=== PATIENT | female | born 1975 | race Caucasian/White ===

== ENCOUNTER 2023-10-23 21:52 | Emergency (ER) | payer MEDICAID ==
[~2023-10-23] VITALS: Ht 162.6 cm; Wt 78.0 kg
[2023-10-23 21:57] VITALS: BP 121/73; PULSE 87; RESP 16; TEMP 99; O2SAT 98
[2023-10-23] MEDS ORDERED: KETOROLAC 30 MG/ML VIAL IM ONE (22:35)
[2023-10-23] MEDS ORDERED: NAPR-54 PO (23:20)
[2023-10-24 00:05] VITALS: BP 121/73; PULSE 87; RESP 16; TEMP 99; O2SAT 98
== END 2023-10-24 00:05 | disposition home or self-care (01) ==
LOC: MED 21:52
DX: S83.92XA Sprain of unspecified site of left knee, initial encounter (principal); S93.402A Sprain of unspecified ligament of left ankle, initial encounter; F17.210 Nicotine dependence, cigarettes, uncomplicated; Z98.890 Other specified postprocedural states; Z90.49 Acquired absence of other specified parts of digestive tract; Z79.1 Long term (current) use of non-steroidal anti-inflammatories (NSAID); W05.2XXA Fall from non-moving motorized mobility scooter, initial encounter; Y93.89 Activity, other specified; Y92.410 Unspecified street and highway as the place of occurrence of the external cause; Y99.8 Other external cause status
CPT/HCPCS: 29505; 73562; 73610; 96372; 99284; J1885; Q0092

== ENCOUNTER 2024-01-02 21:24 | Emergency (ER) | payer MEDICAID ==
[~2024-01-02] VITALS: Ht 165.1 cm; Wt 78.0 kg
[~2024-01-02 21:24] MED LIST: NAPR-54 PO
[2024-01-02 21:45] VITALS: BP 164/100; PULSE 85; RESP 17; TEMP 97.9; O2SAT 98
[2024-01-03] MEDS ORDERED: IBUP-2213 PO (14:21)
[2024-01-03] MEDS ORDERED: BACI-418 TP (14:21)
[2024-01-03] MEDS ORDERED: CEPH-588 PO (14:21)
== END 2024-01-03 00:10 | disposition left against medical advice (07) ==
LOC: MED 21:24
DX: S40.811A Abrasion of right upper arm, initial encounter (principal); Z53.21 Procedure and treatment not carried out due to patient leaving prior to being seen by health care provider; W05.1XXA Fall from non-moving nonmotorized scooter, initial encounter; Y93.89 Activity, other specified; Y92.89 Other specified places as the place of occurrence of the external cause; Y99.8 Other external cause status
CPT/HCPCS: 73090; 73562; 99281

== ENCOUNTER 2024-01-03 13:12 | Emergency (ER) | payer MEDICAID ==
[~2024-01-03] VITALS: Ht 165.1 cm; Wt 80.7 kg
[2024-01-03 13:25] VITALS: BP 156/97; PULSE 91; RESP 16; TEMP 98.1; O2SAT 97
[2024-01-03] MEDS: KETOROLAC 30 MG/ML VIAL IM ONE (14:20)
[2024-01-03] MEDS ORDERED: BACI-418 TP (14:21)
[2024-01-03] MEDS ORDERED: IBUP-2213 PO (14:21)
[2024-01-03] MEDS ORDERED: CEPH-588 PO (14:21)
[2024-01-03] MEDS: BACITRACIN OINT 500 UNITS/GM PKT TP ONE (14:45)
[2024-01-03 15:00] VITALS: BP 156/97; PULSE 91; RESP 16; TEMP 98.1; O2SAT 97
== END 2024-01-03 15:00 | disposition home or self-care (01) ==
LOC: MED 13:12
DX: S80.02XA Contusion of left knee, initial encounter (principal); S50.11XA Contusion of right forearm, initial encounter; V00.848A Other accident with standing micro-mobility pedestrian conveyance, initial encounter; Y93.89 Activity, other specified; Y92.89 Other specified places as the place of occurrence of the external cause; Y99.8 Other external cause status
CPT/HCPCS: 29505; 90471; 90715; 96372; 99284; J1885